=== PATIENT | male | born 1985 | race Caucasian/White ===

== ENCOUNTER 2021-05-22 10:33 | Outpatient (REF) | payer OTHER, SELFPAY | END 2021-05-22 10:34 | disposition home or self-care (01) | LOC: HO.LAB 10:33 | PROVIDERS: PCP Internal Medicine; Visit Provider Internal Medicine | DX: Z20.822 Contact with and (suspected) exposure to COVID-19 (principal) | CPT/HCPCS: C9803; U0003; U0005 ==

== ENCOUNTER 2021-05-29 02:19 | Emergency (ER) | payer OTHER, SELFPAY ==
[2021-05-29 02:38] VITALS: BP 132/68; PULSE 64; RESP 16; TEMP 36.8; O2SAT 98; BMI 25.8
[2021-05-29 03:16] LABS: COVID-19 Test Negative (Negative)
--- NOTE | 2021-05-29 03:29 | ED_ITS ---
HPI - General Adult General Chief complaint: General Medical Stated complaint: covid test Time Seen by Provider: 05/29/21 03:29 Source: patient Mode of arrival: ambulatory Limitations: no limitations History of Present Illness HPI narrative: 35-year-old male who presents emergency department for evaluation of fever, sweats, headache, muscle aches. States that the symptoms began approximately 2200 hours last night (5 hours prior to evaluation). He states that his brother had a COVID-19 infection approximately 2 weeks ago and the patient did spend time with his brother. He states that he had a negative COVID-19 test approximately 1 week prior. He was concerned that he may have COVID-19 therefore came to the emergency department for evaluation. Patient states that he did receive the 2 shot Pfizer COVID 19 vaccination with his last shot being in February of 2021. He denied headache, nausea, vomiting, chest pain, shortness of breath, cough, loss of sense of taste or smell, diarrhea. Related Data Allergies Allergy/AdvReac Type Severity Reaction Status Date / Time No Known Allergies Allergy Unverified 06/27/20 18:42 [No Known Allergies*] Review of Systems Review of Systems: Yes all other systems are reviewed and are negative [facility] Past Medical History [facility] Narrative: Past medical history: None. Past surgical history: None. Social history: He denies tobacco use. He occasionally drinks alcohol. He denies drug use. Social History Social History Advance Directives: No Advance Directives Information Provided: Yes Physical Exam Vital Signs: Vital Signs: Last Vital Signs Temp 98.3 F 05/29/21 02:38 Pulse 64 05/29/21 02:38 Resp 16 05/29/21 02:38 BP 132/68 05/29/21 02:38 Pulse Ox 98 05/29/21 02:38 Body Mass Index 25.8 Const: General: cooperative and no acute distress Orientation/consciousness: oriented to person and oriented to place Limitations: no limitations HENMT: Head: Yes normal to inspection, Yes normocephalic and Yes atraumatic Ears: external ears normal General nose exam: Normal external nose present Face and sinus: Yes normal facial exam Mouth: Normal oral and palatal mucosa present Throat: Yes posterior oropharynx normal Eyes: General: appearance normal, both eyes and all related structures Pupils: Equal, round and reactive pupils present Neck: Neck: Yes normal visual inspection, Yes no lymphadenopathy, Yes trachea midline and Yes supple Chest: Chest palpation & inspection: normal inspection of the chest and normal palpation of entire chest wall Resp: Effort & Inspection: normal respiratory effort and able to speak in complete sentences Auscultation: clear to auscultation bilaterally Cardio: Rate: regular rate Rhythm: regular rhythm Heart sounds: S1 normal heart sound present, S2 normal heart sound present and no murmurs GI: Inspection: Yes normal to inspection Palpation (GI): Soft to palpation, nontender and no guarding Auscultation: normal bowel sounds : General: Yes no CVA tenderness Back/Spine/Pelvis: Back: no CVA tenderness Skin: General skin exam: no rashes or lesions noted Neuro: General: oriented to person and oriented to place Cranial nerves: Yes CN's II-XII intact bilaterally and Yes Equal, round and reactive pupils present Cognition (Neuro): normal cognition Motor exam (neuro): 5/5 motor strength present throughout Extrem: General: Yes normal to inspection Psych: Appearance: grossly normal Speech and movement: Normal speech and movement present Affect: normal affect Attitude: cooperative Thought process: Normal thought process present Thought content: Normal thought content present Course Course Course Narrative: 35-year-old male who presents emergency department for evaluation of fever, chills, sweats, headache, myalgias. Symptoms started approximately 5 hours prior to coming to the emergency department . Patient was exposed to COVID-19 approximately 2 weeks prior but did have a negative COVID test 1 week prior. The patient's vital signs were normal. Physical examination was unremarkable. COVID-19 test was negative. I did discuss this with the patient. The patient was discharged home. The patient was given verbal and printed instructions prior to discharge. The patient was advised to follow-up with his PCP in 2 days and to return to the emergency department if his symptoms get worse or if he develops any new symptoms that are concerning to him. Medical Decision Making Lab Data Labs: Lab Results 05/29/21 Range/Units 02:47 COVID-19 ([facility]) Negative (Negative) COVID-19 Clin Com See Note Discharge Plan Discharge Clinical Impression: Viral syndrome Patient Disposition: Home, Self-Care Instructions: Viral Syndrome (ED) Additional Instructions: Your symptoms are consistent with a virus infection. Your COVID-19 test was negative, this is reassuring however sometimes you can have a falsely negative COVID-19 test. If your symptoms get worse, if you developed loss of sense of taste or smell, diarrhea, cough, chest pain or shortness of breath then I recommend that she get retested for COVID-19 in the next 4-7 days. Otherwise, rest, increase your fluid intake to prevent dehydration. Take ibuprofen 200 mg pills, 3 pills every 6 hours as needed for pain or fever Take Tylenol (acetaminophen) 500 mg pills, 2 pills every 4 to 6 hours as needed for pain or fever Follow-up with your doctor in 2 days. Please return to the emergency department if your symptoms get worse or if you develop any symptoms that are concerning to you.
== END 2021-05-29 04:01 | disposition home or self-care (01) ==
PROVIDERS: Emergency Provider Emergency Medicine Emergency Medical Services; PCP Internal Medicine
DX: B34.9 Viral infection, unspecified (principal); Z20.822 Contact with and (suspected) exposure to COVID-19; R51.9 Headache, unspecified
CPT/HCPCS: 36415; 87635; 99283